=== PATIENT | female | born 1950 | race Caucasian/White ===

== ENCOUNTER → 2016-06-10 | Outpatient (CLI) | payer MEDICARE, OTHER | LOC: MC.RAD 14:59 | DX: Z12.31 Encounter for screening mammogram for malignant neoplasm of breast (principal) ==

== ENCOUNTER → 2017-08-06 | Outpatient (CLI) | payer MEDICARE, OTHER | LOC: COL.LAB 11:13 | DX: Z01.812 Encounter for preprocedural laboratory examination (principal) ==

== ENCOUNTER → 2018-02-26 | Outpatient (CLI) | payer MEDICARE, OTHER | LOC: MC.RAD 15:13 | DX: Z12.31 Encounter for screening mammogram for malignant neoplasm of breast (principal) ==

== ENCOUNTER → 2020-04-25 | Outpatient (CLI) | payer MEDICARE | LOC: MC.RAD 16:37 | DX: Z12.31 Encounter for screening mammogram for malignant neoplasm of breast (principal) ==